=== PATIENT | male | born 1955 | race Caucasian/White ===

== ENCOUNTER 2020-07-19 20:38 | Inpatient (IN) | payer OTHER ==
[2020-07-19 23:37] LABS: BASO % 0.5 % (0-2.0); HEMATOCRIT 43.2 % (35.4-49); LYMPH % 18.3 % (8-40); MCH 32.5 pg (25.7-33.7); MCHC 34.8 g/dl (32.0-35.9); MEAN CELL VOLUME 93.4 fl (80-96); MEAN PLT VOLUME 9.1 fl (7.5-11.1); NEUT % 72.2 % (42.8-82.8); PLATELET COUNT 204 K/MM3 (134-434); RBC 4.62 M/mm3 (4.00-5.60); RDW 12.8 % (11.9-15.9); WHITE BLOOD COUNT 8.9 K/mm3 (4.0-10.0)
[2020-07-19 23:56] LABS: POTASSIUM 4.1 mmol/L (3.5-5.1)
[2020-07-19 23:58] LABS: CALCIUM 8.5 mg/dL (8.5-10.1)
[2020-07-19 23:59] LABS: ALBUMIN 3.8 g/dl (3.4-5.0); BLOOD UREA NITROGEN 8.5 mg/dL (7-18)
[2020-07-20 00:02] LABS: CREATININE 0.9 mg/dL (0.55-1.3)
[2020-07-20 00:03] LABS: BILIRUBIN,TOTAL 0.3 mg/dL (0.2-1); TOT PROT 7.6 g/dl (6.4-8.2)
[2020-07-20] MEDS ORDERED: ALPRAZolam 0.25 MG TABLET PO PRN (01:29)
[2020-07-20] MEDS ORDERED: ALPRAZolam 0.25 MG TABLET PO STA (01:43)
[2020-07-20] MEDS ORDERED: ALPRAZolam 0.25 MG TABLET ONE (02:48)
[2020-07-20 06:08] LABS: HEMATOCRIT 43.6 % (35.4-49); HEMOGLOBIN 14.8 GM/dL (11.7-16.9); MEAN CELL VOLUME 94.1 fl (80-96); MEAN PLT VOLUME 8.8 fl (7.5-11.1); PLATELET COUNT 183 K/MM3 (134-434); RBC 4.63 M/mm3 (4.00-5.60); RDW 12.8 % (11.9-15.9); WHITE BLOOD COUNT 8.1 K/mm3 (4.0-10.0)
[2020-07-20 06:33] LABS: POTASSIUM 3.9 mmol/L (3.5-5.1)
[2020-07-20 06:35] LABS: CALCIUM 8.7 mg/dL (8.5-10.1)
[2020-07-20 06:36] LABS: BLOOD UREA NITROGEN 6.7 mg/dL (7-18)
[2020-07-20 06:39] LABS: CREATININE 0.7 mg/dL (0.55-1.3)
[2020-07-20] MEDS ORDERED: chlordiazePOXIDE HCL 25 MG CAPSULE ONE ×3 (06:41→17:53)
[2020-07-20] MEDS: chlordiazePOXIDE HCL 25 MG CAPSULE PO SCH ×4 (06:43→23:36)
[2020-07-20 07:32] LABS: URINE APPEARANCE CLEAR; URINE BILIRUBIN NEGATIVE (NEGATIVE); URINE COLOR YELLOW; URINE GLUCOSE (UA) NEGATIVE (NEGATIVE); URINE KETONE NEGATIVE (NEGATIVE); URINE LEUK ESTERASE NEGATIVE (NEGATIVE); URINE NITRITE NEGATIVE (NEGATIVE); URINE PROTEIN NEGATIVE (NEGATIVE); URINE UROBILINOGEN 0.2 mg/dL (0.2-1.0)
[2020-07-20 07:39] LABS: COCAINE, UR NEGATIVE ng/ml (CUTOFF=300); METHADONE, UR NEGATIVE ng/ml (CUTOFF=300); OPIATES, URI NEGATIVE ng/ml (CUTOFF=300); PHENCYCLIDINE,URINE NEGATIVE ng/ml (CUTOFF=25); URINE BARBITURATES NEGATIVE ng/ml (CUTOFF=200); URINE BENZODIAZEPINES NEGATIVE ng/ml (CUTOFF=200)
[2020-07-20 07:41] LABS: URINE AMPHETAMINES NEGATIVE ng/ml (CUTOFF=500)
[2020-07-20] MEDS ORDERED: PT OWN MED DRAWER 7, Y5N ONE (09:52)
[2020-07-20] MEDS: amLODIPine BESYLATE 5 MG TABLET (FP) PO SCH (10:03)
[2020-07-20] MEDS: ENOXAPARIN NA (PORCINE) 40 MG/0.4 ML DISP.SYRIN SQ SCH (10:03)
[2020-07-20] MEDS: DONEPEZIL HCL 5 MG TABLET (FP) PO SCH (10:03)
[2020-07-21 02:50] VITALS: BMI 27.6
[2020-07-21] MEDS: chlordiazePOXIDE HCL 25 MG CAPSULE PO SCH ×4 (05:30→22:50)
[2020-07-21] MEDS: amLODIPine BESYLATE 5 MG TABLET (FP) PO SCH (09:17)
[2020-07-21] MEDS: DONEPEZIL HCL 5 MG TABLET (FP) PO SCH (09:17)
[2020-07-21] MEDS: ENOXAPARIN NA (PORCINE) 40 MG/0.4 ML DISP.SYRIN SQ SCH (09:17)
[2020-07-21] MEDS ORDERED: PNEUMOC 13-VAL CONJ-DIP CRM/PF 0.5 ML DISP.SYRIN IM ONE (15:33)
[2020-07-21] MEDS ORDERED: PNEUMOCOCCAL 23 VACCINE 0.5 ML VIAL IM ONE (16:00)
[2020-07-21] MEDS: ACETAMINOPHEN 325 MG TABLET (FP) PO PRN (20:55)
[2020-07-22 01:07] LABS: HEP B CORE AB, TOT Negative (Negative)
[2020-07-22] MEDS ORDERED: chlordiazePOXIDE HCL 10 MG CAPSULE PO SCH (05:00)
[2020-07-22] MEDS: DONEPEZIL HCL 5 MG TABLET (FP) PO SCH (09:27)
[2020-07-22] MEDS: amLODIPine BESYLATE 5 MG TABLET (FP) PO SCH (09:27)
[2020-07-22] MEDS: ENOXAPARIN NA (PORCINE) 40 MG/0.4 ML DISP.SYRIN SQ SCH (09:27)
[2020-07-22] MEDS: chlordiazePOXIDE HCL 10 MG CAPSULE PO SCH ×2 (14:50→21:51)
[2020-07-23] MEDS ORDERED: chlordiazePOXIDE HCL 10 MG CAPSULE PO SCH (05:00)
[2020-07-23] MEDS: DONEPEZIL HCL 5 MG TABLET (FP) PO SCH (09:28)
[2020-07-23] MEDS: ENOXAPARIN NA (PORCINE) 40 MG/0.4 ML DISP.SYRIN SQ SCH (09:28)
[2020-07-23] MEDS: amLODIPine BESYLATE 5 MG TABLET (FP) PO SCH (11:54)
[2020-07-24] MEDS ORDERED: chlordiazePOXIDE HCL 10 MG CAPSULE PO ONE (05:00)
[2020-07-24] MEDS ORDERED: QUEtiapine FUMARATE 25 MG TABLET PO PRN (09:56)
[2020-07-24] MEDS ORDERED: LACTULOSE 20 GM/30 ML UDC (FOR ORAL USE ONLY) PO ONE (10:00)
[2020-07-24] MEDS: DONEPEZIL HCL 5 MG TABLET (FP) PO SCH (10:07)
[2020-07-24] MEDS: amLODIPine BESYLATE 5 MG TABLET (FP) PO SCH (10:07)
[2020-07-24] MEDS: ENOXAPARIN NA (PORCINE) 40 MG/0.4 ML DISP.SYRIN SQ SCH (10:07)
[2020-07-24] MEDS: ACETAMINOPHEN 325 MG TABLET (FP) PO PRN (14:23)
[2020-07-25] MEDS: ENOXAPARIN NA (PORCINE) 40 MG/0.4 ML DISP.SYRIN SQ SCH (11:42)
[2020-07-25] MEDS: DONEPEZIL HCL 5 MG TABLET (FP) PO SCH (11:42)
[2020-07-25] MEDS: amLODIPine BESYLATE 5 MG TABLET (FP) PO SCH (11:42)
[2020-07-26] MEDS: ENOXAPARIN NA (PORCINE) 40 MG/0.4 ML DISP.SYRIN SQ SCH (09:45)
[2020-07-26] MEDS: amLODIPine BESYLATE 5 MG TABLET (FP) PO SCH (09:45)
[2020-07-26] MEDS: DONEPEZIL HCL 5 MG TABLET (FP) PO SCH (09:45)
[2020-07-27] MEDS: DONEPEZIL HCL 5 MG TABLET (FP) PO SCH (09:12)
[2020-07-27] MEDS: amLODIPine BESYLATE 5 MG TABLET (FP) PO SCH (09:13)
[2020-07-28] MEDS: DONEPEZIL HCL 5 MG TABLET (FP) PO SCH (10:06)
[2020-07-28] MEDS: amLODIPine BESYLATE 5 MG TABLET (FP) PO SCH (10:06)
[2020-07-29 02:18] LABS: URINE APPEARANCE CLEAR; URINE BILIRUBIN NEGATIVE (NEGATIVE); URINE COLOR YELLOW; URINE GLUCOSE (UA) NEGATIVE (NEGATIVE); URINE KETONE NEGATIVE (NEGATIVE); URINE LEUK ESTERASE NEGATIVE (NEGATIVE); URINE NITRITE NEGATIVE (NEGATIVE); URINE PROTEIN NEGATIVE (NEGATIVE); URINE UROBILINOGEN 0.2 mg/dL (0.2-1.0)
[2020-07-29 02:19] LABS: EPI CELLS 0 /uL (0-25.1); HYALINE CASTS 0 /uL (0-3.1); URINE BACTERIA 1 /uL (0-1359); URINE RBC 1 /uL (0-23.9); URINE WBC 0 /uL (0-25.8)
[2020-07-29 08:16] LABS: BASO % 0.6 % (0-2.0); EOS % 3.1 % (0-4.5); HEMATOCRIT 44.2 % (35.4-49); LYMPH % 25.2 % (8-40); MCH 31.9 pg (25.7-33.7); MCHC 33.9 g/dl (32.0-35.9); MEAN CELL VOLUME 94.1 fl (80-96); MEAN PLT VOLUME 9.5 fl (7.5-11.1); MONO % 7.8 % (3.8-10.2); NEUT % 63.3 % (42.8-82.8); PLATELET COUNT 218 K/MM3 (134-434); RDW 12.5 % (11.9-15.9); WHITE BLOOD COUNT 7.2 K/mm3 (4.0-10.0)
[2020-07-29 09:33] LABS: POTASSIUM 4.2 mmol/L (3.5-5.1)
[2020-07-29 09:38] LABS: ALBUMIN 3.2 g/dl (3.4-5.0); BLOOD UREA NITROGEN 9.7 mg/dL (7-18); CALCIUM 8.8 mg/dL (8.5-10.1)
[2020-07-29 09:41] LABS: CREATININE 0.8 mg/dL (0.55-1.3)
[2020-07-29 09:42] LABS: BILIRUBIN,TOTAL 0.5 mg/dL (0.2-1); TOT PROT 6.9 g/dl (6.4-8.2)
[2020-07-29] MEDS: ACETAMINOPHEN 325 MG TABLET (FP) PO PRN (10:09)
[2020-07-29] MEDS: amLODIPine BESYLATE 5 MG TABLET (FP) PO SCH (10:09)
[2020-07-29] MEDS: DONEPEZIL HCL 5 MG TABLET (FP) PO SCH (10:09)
[2020-07-30] MEDS: amLODIPine BESYLATE 5 MG TABLET (FP) PO SCH (09:03)
[2020-07-30] MEDS: DONEPEZIL HCL 5 MG TABLET (FP) PO SCH (09:03)
[2020-07-31] MEDS: DONEPEZIL HCL 5 MG TABLET (FP) PO SCH (10:38)
[2020-07-31] MEDS: amLODIPine BESYLATE 5 MG TABLET (FP) PO SCH (10:41)
[2020-08-01] MEDS: DONEPEZIL HCL 5 MG TABLET (FP) PO SCH (10:15)
[2020-08-01] MEDS: amLODIPine BESYLATE 5 MG TABLET (FP) PO SCH (10:16)
[2020-08-02] MEDS: amLODIPine BESYLATE 5 MG TABLET (FP) PO SCH (09:08)
[2020-08-02] MEDS: DONEPEZIL HCL 5 MG TABLET (FP) PO SCH (09:08)
[2020-08-03] MEDS: amLODIPine BESYLATE 5 MG TABLET (FP) PO SCH (09:41)
[2020-08-03] MEDS: DONEPEZIL HCL 5 MG TABLET (FP) PO SCH (09:41)
[2020-08-03] MEDS: ACETAMINOPHEN 325 MG TABLET (FP) PO PRN (21:08)
[2020-08-04] MEDS: DONEPEZIL HCL 5 MG TABLET (FP) PO SCH (09:33)
[2020-08-04] MEDS: amLODIPine BESYLATE 5 MG TABLET (FP) PO SCH (09:33)
[2020-08-05 08:38] LABS: BASO % 0.5 % (0-2.0); EOS % 1.5 % (0-4.5); HEMATOCRIT 42.8 % (35.4-49); HEMOGLOBIN 14.7 GM/dL (11.7-16.9); LYMPH % 22.8 % (8-40); MCH 31.6 pg (25.7-33.7); MCHC 34.4 g/dl (32.0-35.9); MEAN CELL VOLUME 91.7 fl (80-96); MEAN PLT VOLUME 9.5 fl (7.5-11.1); MONO % 7.2 % (3.8-10.2); PLATELET COUNT 223 K/MM3 (134-434); RBC 4.67 M/mm3 (4.00-5.60); RDW 12.3 % (11.9-15.9); WHITE BLOOD COUNT 8.7 K/mm3 (4.0-10.0)
[2020-08-05 08:51] LABS: POTASSIUM 4.2 mmol/L (3.5-5.1)
[2020-08-05 08:53] LABS: ALBUMIN 3.6 g/dl (3.4-5.0)
[2020-08-05 08:54] LABS: BLOOD UREA NITROGEN 10.8 mg/dL (7-18)
[2020-08-05 08:57] LABS: CREATININE 0.8 mg/dL (0.55-1.3)
[2020-08-05 08:58] LABS: BILIRUBIN,TOTAL 0.5 mg/dL (0.2-1)
[2020-08-05] MEDS: amLODIPine BESYLATE 5 MG TABLET (FP) PO SCH (11:28)
[2020-08-05] MEDS: DONEPEZIL HCL 5 MG TABLET (FP) PO SCH (11:28)
[2020-08-06] MEDS: DONEPEZIL HCL 5 MG TABLET (FP) PO SCH (09:25)
[2020-08-06] MEDS: amLODIPine BESYLATE 5 MG TABLET (FP) PO SCH (09:25)
[2020-08-06] MEDS ORDERED: PT OWN MED DRAWER 7, Y5N ONE (21:26)
[2020-08-07] MEDS: DONEPEZIL HCL 5 MG TABLET (FP) PO SCH (10:33)
[2020-08-07] MEDS: amLODIPine BESYLATE 5 MG TABLET (FP) PO SCH (10:33)
[2020-08-08] MEDS: ENOXAPARIN NA (PORCINE) 40 MG/0.4 ML DISP.SYRIN SQ SCH (09:44)
[2020-08-08] MEDS: amLODIPine BESYLATE 5 MG TABLET (FP) PO SCH (09:44)
[2020-08-08] MEDS: DONEPEZIL HCL 5 MG TABLET (FP) PO SCH (09:44)
[2020-08-09] MEDS: DONEPEZIL HCL 5 MG TABLET (FP) PO SCH (10:50)
[2020-08-09] MEDS: amLODIPine BESYLATE 5 MG TABLET (FP) PO SCH (10:50)
[2020-08-09] MEDS: ENOXAPARIN NA (PORCINE) 40 MG/0.4 ML DISP.SYRIN SQ SCH (10:50)
[2020-08-10] MEDS: DONEPEZIL HCL 5 MG TABLET (FP) PO SCH (09:45)
[2020-08-10] MEDS: amLODIPine BESYLATE 5 MG TABLET (FP) PO SCH (09:45)
[2020-08-10] MEDS: ENOXAPARIN NA (PORCINE) 40 MG/0.4 ML DISP.SYRIN SQ SCH (09:45)
[2020-08-11] MEDS ORDERED: PT OWN MED DRAWER 7, Y5N ONE (10:42)
[2020-08-11] MEDS: amLODIPine BESYLATE 5 MG TABLET (FP) PO SCH (10:53)
[2020-08-11] MEDS: DONEPEZIL HCL 5 MG TABLET (FP) PO SCH (10:53)
[2020-08-11] MEDS: ENOXAPARIN NA (PORCINE) 40 MG/0.4 ML DISP.SYRIN SQ SCH (11:58)
[2020-08-12] MEDS: amLODIPine BESYLATE 5 MG TABLET (FP) PO SCH (11:16)
[2020-08-12] MEDS: DONEPEZIL HCL 5 MG TABLET (FP) PO SCH (11:16)
[2020-08-12] MEDS: ENOXAPARIN NA (PORCINE) 40 MG/0.4 ML DISP.SYRIN SQ SCH (13:18)
[2020-08-13] MEDS: ENOXAPARIN NA (PORCINE) 40 MG/0.4 ML DISP.SYRIN SQ SCH ×2 (08:39→09:03)
[2020-08-13] MEDS: amLODIPine BESYLATE 5 MG TABLET (FP) PO SCH ×2 (08:40→09:04)
[2020-08-13] MEDS: DONEPEZIL HCL 5 MG TABLET (FP) PO SCH ×2 (08:40→09:03)
[2020-08-14] MEDS: DONEPEZIL HCL 5 MG TABLET (FP) PO SCH (09:08)
[2020-08-14] MEDS: ENOXAPARIN NA (PORCINE) 40 MG/0.4 ML DISP.SYRIN SQ SCH (09:08)
[2020-08-15] MEDS: amLODIPine BESYLATE 10 MG TABLET (FP) PO SCH (09:17)
[2020-08-15] MEDS: ENOXAPARIN NA (PORCINE) 40 MG/0.4 ML DISP.SYRIN SQ SCH (09:17)
[2020-08-15] MEDS: DONEPEZIL HCL 5 MG TABLET (FP) PO SCH (09:17)
[2020-08-15] MEDS ORDERED: MIDAZOLAM HCL 2 MG/2 ML SINGLE DOSE VIAL ONE (12:46)
[2020-08-15] MEDS ORDERED: PROPOFOL 20 ML ONE ×2 (12:46)
[2020-08-16] MEDS: DONEPEZIL HCL 5 MG TABLET (FP) PO SCH (09:42)
[2020-08-16] MEDS: amLODIPine BESYLATE 10 MG TABLET (FP) PO SCH (09:42)
[2020-08-16] MEDS: ENOXAPARIN NA (PORCINE) 40 MG/0.4 ML DISP.SYRIN SQ SCH (09:42)
[2020-08-17] MEDS: amLODIPine BESYLATE 10 MG TABLET (FP) PO SCH (09:42)
[2020-08-17] MEDS: ENOXAPARIN NA (PORCINE) 40 MG/0.4 ML DISP.SYRIN SQ SCH (09:42)
[2020-08-17] MEDS: DONEPEZIL HCL 5 MG TABLET (FP) PO SCH (09:42)
[2020-08-17] MEDS ORDERED: PT OWN MED DRAWER 7, Y5N ONE (20:58)
[2020-08-18] MEDS ORDERED: PT OWN MED DRAWER 7, Y5N ONE (06:57)
[2020-08-18] MEDS: ACETAMINOPHEN 325 MG TABLET (FP) PO PRN (12:09)
[2020-08-18] MEDS: DONEPEZIL HCL 5 MG TABLET (FP) PO SCH (12:10)
[2020-08-18] MEDS: ENOXAPARIN NA (PORCINE) 40 MG/0.4 ML DISP.SYRIN SQ SCH (12:10)
[2020-08-18] MEDS: amLODIPine BESYLATE 10 MG TABLET (FP) PO SCH (12:10)
[2020-08-19] MEDS ORDERED: PT OWN MED DRAWER 7, Y5N ONE (09:41)
[2020-08-19] MEDS: DONEPEZIL HCL 5 MG TABLET (FP) PO SCH (09:48)
[2020-08-19] MEDS: amLODIPine BESYLATE 10 MG TABLET (FP) PO SCH (09:48)
[2020-08-19] MEDS: ENOXAPARIN NA (PORCINE) 40 MG/0.4 ML DISP.SYRIN SQ SCH (09:48)
[2020-08-20] MEDS: amLODIPine BESYLATE 10 MG TABLET (FP) PO SCH (10:20)
[2020-08-20] MEDS: DONEPEZIL HCL 5 MG TABLET (FP) PO SCH (10:20)
[2020-08-20] MEDS: ENOXAPARIN NA (PORCINE) 40 MG/0.4 ML DISP.SYRIN SQ SCH (10:22)
[2020-08-21] MEDS: amLODIPine BESYLATE 10 MG TABLET (FP) PO SCH (09:22)
[2020-08-21] MEDS: DONEPEZIL HCL 5 MG TABLET (FP) PO SCH (10:02)
[2020-08-22] MEDS: amLODIPine BESYLATE 10 MG TABLET (FP) PO SCH (10:54)
[2020-08-22] MEDS: DONEPEZIL HCL 5 MG TABLET (FP) PO SCH (10:55)
[2020-08-22 19:05] VITALS: BP 134/80; PULSE 81; TEMP 97.4
== END 2020-08-22 21:00 | DRG 42 ==
LOC: EDBD 20:38 → JER 20:38 → JERBED 07-20 00:25 → J5S 07-20 19:02 → J8W 08-09 13:53 → J5S 08-21 19:08
PROVIDERS: ADMIT Hospitalist; ATTEND Internal Medicine
PROC: HZ2ZZZZ Detoxification Services for Substance Abuse Treatment (ICD-10-PCS; principal; 2020-07-20)
DX: G30.9 Alzheimer's disease, unspecified (principal); F10.239 Alcohol dependence with withdrawal, unspecified; I10 Essential (primary) hypertension; R41.0 Disorientation, unspecified; Z87.820 Personal history of traumatic brain injury; G31.2 Degeneration of nervous system due to alcohol; F10.27 Alcohol dependence with alcohol-induced persisting dementia; F02.81 Dementia in other diseases classified elsewhere, unspecified severity, with behavioral disturbance; Z75.1 Person awaiting admission to adequate facility elsewhere; R41.82 Altered mental status, unspecified
CPT/HCPCS: 36415; 70450-TC; 71045-TC-FY; 76705-TC; 80048; 80053; 80307; 81003; 82140; 82607; 82746; 82962; 84443; 85025; 85027; 86704; 86706; 86707; 86708; 86709; 86780; 87086; 87340; 90732; 93005; 93010; 97116-GP; 97161-GP; 99285-25; C9803; G0009; U0003